=== PATIENT | female | born 1975 | race Caucasian/White ===

== ENCOUNTER 2025-04-30 10:52 | Outpatient (CLI) | payer OTHER, SELFPAY | END 2025-04-30 10:53 | disposition home or self-care (01) | PROVIDERS: PCP Family Medicine; Visit Provider Nurse Practitioner Family | DX: I10 Essential (primary) hypertension (principal); Z13.6 Encounter for screening for cardiovascular disorders | CPT/HCPCS: 80053; 80061; 81001 ==

== ENCOUNTER 2025-05-22 00:10 | Emergency (ER) | payer OTHER, SELFPAY ==
--- OUTSIDE RECORDS SUMMARY | 2025-04-29 14:45 | XMS_ITS | Encounter Summary ---
Author Organization [facility] Address [address] [place] [address]. [place] [address] Care Team Providers Care Record Clerk Name Role Phone No Ref-Primary, Physician Primary Care Provider Reason for Visit * Reason Comments jaw pain 50 yo F presents wit h the following complaint right jaw is swollen onset T-1 no tooth pain but jaw is tight . Encounter Details Date Type Department Care Team (Late st Contact Info) Description 04/29/2025 2:45 PM MANAGER QUALITY Office Visit [facility] [address] [phone] Joyce Esposito MD [address] [place], [place] [id number] Dental infection (Primary Dx); Elevated blood pressure reading without diagnosis of hypertension Social History Tobacco Use Types Packs/Day Years Used Date Smoking Tobacco: Never Assessed Comments Unknown Sex and Gender Information Value Date Recorded Sex Assigned at Not on file Legal Sex Female 9:28 PM MANAGER QUALITY Gender Identity Not on file Sexual Orientation Not on file documented as of this encounter Last Filed Vital Signs Vital Sign Reading Time Taken Comments Blood Pressure 179/114 04/29/2025 2:59 PM MANAGER QUALITY Pulse 100 04/29/2025 2:49 PM MANAGER QUALITY Temperature 36.7 C (98 F) 04/29/2025 2:49 PM MANAGER QUALITY Respiratory Rate 16 04/29/2025 2:49 PM MANAGER QUALITY Oxygen Saturation 99% 04/29/2025 2:49 PM MANAGER QUALITY Inhaled Oxygen Concentration - - Weight 59 kg (130 lb 1.6 oz) 04/29/2025 2:49 PM MANAGER QUALITY Height - - Body Mass Index - - documented in this encounter Patient Instructions * Attachments The following attachments cannot be sent through Care Everywhere. * Tooth: Abscessed (Gabonese) * Hypertension (Gabonese) documented in this encounter Progress Notes * Suzanne Deras CMA - 04/29/2025 2:45 PM CST Urgent Care Clinic Visit Chief Complaint Patient presents with jaw pain 50 yo F presents with the following complaint right jaw is swollen onset T-1 no tooth pain but jaw is tight . 04/29/2025 2:49 PM Additional Questions Roomed by Suzanne Accompanied by Self GER QUALITY * Joyce Esposito MD - 04/29/2025 2:45 PM CST ASSESSMENT/ PLAN: Dental infection - amoxicillin (AMOXIL) 875 MG tablet; Take 1 tablet (875 mg) by mouth 2 times daily for 10 days. Symptomatic treatment OTC analgesic (ibuprofen and or acetaminophen) as needed. Follow-up with primary dental clinic for definitive therapy. Elevated blood pressure reading without diagnosis of hypertension She is not aware of any previous elevated blood pressure. She has not been told she has hypertension, but has infrequent medical care. Blood pressure taken today was elevated. Discussed that some prescription medications for pain, poor sleep, and irritation from illness can temporarily raise BP. Frequent home/ store blood pressure checks are encouraged at different times of day. Patient shouldkeep a diary of blood pressure levels and share that information with the primary care provider to determine if antihypertensive medication initiation is necessary 'SUBJECTIVE: Chief Complaint Patient presents with jaw pain 50 yo F presents with the following complaint right jaw is swollen onset T-1 no tooth pain but jaw is tight . Sonja Dennison is a 50 year old female with a chief complaint of jaw/ dental pain . Onset of symptoms was 1 day(s) ago. She has attempted to arrange emergency dental care no- not yet Course of illness: sudden onset with swelling right jaw region of the 3rd molar on the right, no severe pain Current and Associated symptoms: little headache and malaise Treatment measures tried include None tried She has not been diagnosed with hypertension- never been told she had elevated BP PMH: No history of chronic health conditions ALLERGIES: Patient has no known allergies. Current Outpatient Medications Medication Sig Dispense Refill amoxicillin (AMOXIL) 875 MG tablet Take 1 tablet (875 mg) by mouth 2 times daily for 10 days. 20 tablet 0 No current facility-administered medications for this visit. ROS: CONSTITUTIONAL:NEGATIVE for fever, chills, INTEGUMENTARY/SKIN: NEGATIVE for worrisome rashes or lesions EYES: NEGATIVE for vision changes or irritation RESP:NEGATIVE for significant cough or SOB OBJECTIVE: BP (!) 179/114 Pulse 100 Temp 98 ??F (36.7 ??C) Resp 16 Wt 59 kg (130 lb 1.6 oz) LMP (Approximate) SpO2 99% Patient indicates that the following tooth is causing the swelling with some moderate pain symptoms: right lower 3rd molar Caries of the painful tooth with no purulent drainage noted: Pain with percussion over the affected tooth Swelling of the gingiva and cheek adjacent to the affected tooth: GENERAL APPEARANCE: alert, moderate distress, and cooperative HENT: ear canals and TM's normal. Nose normal. Pharynx not erythematous with no exudate noted. NECK: supple, non-tender to palpation, no adenopathy noted RESP: lungs clear to auscultation - no rales, rhonchi or wheezes CV: regular rates and rhythm, normal S1 S2, no murmur noted SKIN: no suspicious lesions or rashes GER QUALITY documented in this encounter Plan of Treatment Not on file documented as of this encounter Visit Diagnoses Diagnosis Dental infection- Primary Acute apical periodontitis of pulpal origin Elevated blood pressure reading without diagnosis of hypertension documented in this encounter Care Teams Record Clerk Relationship Specialty Start Date End Date No Ref-Primary, Physician PCP - General 04/29/25 documented as of this encounter
[2025-05-22 00:12] VITALS: BP 155/108; PULSE 90; RESP 16; TEMP 36.4; O2SAT 98; BMI 20.3
--- OUTSIDE RECORDS SUMMARY | 2025-05-22 00:14 | XMS_ITS | Clinical Summary ---
Author Organization [facility] Address [address] [place] [id number] Care Team Providers Care Stove Mounter Name Role Phone Pcp, No Primary Care Provider Unavailabl e Allergies No known active allergies Medications nicotine 21 mg/24 hr (NICODERM; HABITROL) 21 mg/24 hr patchIndications :Tobacco use Apply 1 Patch on dry, clean, hairless skin once daily. 30 Patch 7 Active albuterol HFA 90 mcg/actuation inhalerIndicatio ns:Dyspnea, unspecified type,Tobacco use Inhale 2 Puffs by mouth 4 times daily if needed. 1 Inhaler 7 Active Active Problems Problem Noted Date Diagnosed Date Chest pain on breathing 03/18/2017 Tobacco use 03/18/2017 Abnormal EKG 03/18/2017 Alcohol use disorder 03/18/2017 Elevated blood pressure reading 03/18/2017 Family History Medical History Relation Name Comments Malignant Hypertension Mother Coronary artery disease Paternal Grandfather Coronary artery disease Paternal Grandmother Relation Name Status Comments Mother Paternal Grandfather Paternal Grandmother Social History Tobacco Use Types Packs/Day Years Used Date Smoking Tobacco: Every Day Cigarettes Smokeless Tobacco: Never Tobacco Cessation:Ready to Q uit: Yes; Counseling Given: Yes Comments:TIP done 03/18/17 Alcohol Use Standard Drinks/Week Comments Yes 6 (1 standard drink = 0.6 oz pur e alcohol) Comments No Sex and Gender Information Value Date Recorded Sex Assigned at Not on file Legal Sex Female 5:51 AM TREATER HELPER Gender Identity Not on file Sexual Orientation Not on file Obstetrics History Last Filed Vital Signs Vital Sign Reading Time Taken Comments Blood Pressure 121/81 03/18/2017 11:34 AM CDT Pulse 70 03/18/2017 11:34 AM CDT Temperature 36.9 C (98.4 F) 03/18/2017 11:34 AM CDT Respiratory Rate 16 03/18/2017 11:34 AM CDT Oxygen Saturation 98% 03/18/2017 11:34 AM CDT Inhaled Oxygen Concentration - - Weight 58.6 kg (129 lb 3 oz) 03/18/2017 6:00 AM CDT Height 170.2 cm (5' 7) 03/18/2017 12:07 AM CDT Body Mass Index 20.23 03/18/2017 12:07 AM CDT Plan of Treatment Not on file Advance Directives * Full Code (Latest Code Status on File) Date Activated Date Inactivated Comments 03/18/2017 12:37 AM 03/18/2017 4:15 PM Care Teams Stove Mounter Relationship Specialty Start Date End Date Pcp, No . PCP - General 06/28/24
--- OUTSIDE RECORDS SUMMARY | 2025-05-22 00:14 | XMS_ITS | Clinical Summary ---
Author Organization [facility] Address [address] [place] [id number] Care Team Providers Care Link Assembler Name Role Phone No Ref-Primary, Physician Primary Care Provider Allergies No known active allergies Medications amoxicillin (AMOXIL) 875 MG tabletIndicatio ns:Dental infection Take 1 tablet (875 mg) by mouth 2 times daily for 10 days. 20 tablet 04/29/2025 Encounters Date Type Department Care Team Description 04/29/2025 2:45 PM RAT EXTERMINATOR Office Visit [facility] [address] [phone] Joyce Esposito MD Dental infection (Primary Dx); Elevated blood pressure reading without diagnosis of hypertension from Last 3 Months Social History Tobacco Use Types Packs/Day Years Used Date Smoking Tobacco: Never Assessed Comments Unknown Sex and Gender Information Value Date Recorded Sex Assigned at Not on file Legal Sex Female 9:28 PM RAT EXTERMINATOR Gender Identity Not on file Sexual Orientation Not on file Last Filed Vital Signs Vital Sign Reading Time Taken Comments Blood Pressure 179/114 04/29/2025 2:59 PM RAT EXTERMINATOR Pulse 100 04/29/2025 2:49 PM RAT EXTERMINATOR Temperature 36.7 C (98 F) 04/29/2025 2:49 PM RAT EXTERMINATOR Respiratory Rate 16 04/29/2025 2:49 PM RAT EXTERMINATOR Oxygen Saturation 99% 04/29/2025 2:49 PM RAT EXTERMINATOR Inhaled Oxygen Concentration - - Weight 59 kg (130 lb 1.6 oz) 04/29/2025 2:49 PM RAT EXTERMINATOR Height - - Body Mass Index - - Plan of Treatment Health Maintenance Due Date Last Done Comments ADVANCE CARE PLANNING 1976 ANNUAL REVIEW OF HM ORDERS 1976 CT COLONOGRAPHY 1976 DIABETES SCREENING 1976 FIT 1976 FLEX SIG 1976 MAMMO SCREENING 1976 sDNA (Cologuard) 1976 YEARLY PREVENTIVE VISIT 02/01/1979 COLONOSCOPY 02/01/1986 COLORECTAL CANCER SCREENING 02/01/1986 HIV SCREENING 02/01/1991 HEPATITIS C SCREENING 02/01/1994 HEPATITIS B VACCINE (1 of 3 - 19+ 3-dose series) 02/01/1995 PAP 02/01/1997 LIPID 2016 PHQ-2 (once per calendar year) 2024 COVID-19 VACCINE ( - season) 2025 02/10/2023, 07/01/2021, 11/06/2020, Additional history exists INFLUENZA VACCINE (#1) 2025 , 05/02/2013, 03/29/2012, Additional history exists ZOSTER VACCINE (1 of 2) 02/01/2026 DTAP/TDAP/TD VACCINE (2 - Td or Tdap) 11/03/2027 11/02/2017 HPV VACCINE (No Doses Required) Completed MENINGITIS VACCINE Aged Out No longer eligible based on patient's age to complete this topic PNEUMOCOCCAL VACCINE: PEDIATRICS (0 to 5 YEARS) AND AT-RISK PATIENTS (6 to 49 YEARS) Aged Out No longer eligible based on patient's age to complete this topic Insurance MEDICA CHOICE MED[employer] CHOICE Care Teams Link Assembler Relationship Specialty Start Date End Date No Ref-Primary, Physician PCP - General 04/29/25
--- NOTE | 2025-05-22 00:30 | ED.GENADULT ---
HPI - General Adult General Time Seen by Provider: 00:30 Date Seen: 05/22/25 Chief complaint: Allergic Reaction Stated complaint: facial swelling Time Seen by Provider: 05/22/25 00:27 Source: patient Mode of arrival: ambulatory Limitations: no limitations History of Present Illness HPI narrative: 50-year-old female who presents today with concern for allergic reaction. She reports swelling of her lips, face, hands and feet when she woke up tonight. Symptoms resolved now. Patient's spouse report visible swelling of the lips and face as well as mild swelling of eyelids, swelling and redness of the forearms with some itching. No breathing or swallowing difficulty. Patient recently started Chantix and has been doing well with smoking cessation, also started losartan at the same time. Related Data Home Medications ?Medication ?Instructions ?Recorded ?Confirmed amoxicillin 875 mg tablet 875 mg PO BID 04/30/25 05/22/25 Previous Rx's ?Medication ?Instructions ?Recorded losartan 50 mg tablet (Cozaar) 50 mg PO QDAY #30 tabs 04/30/25 varenicline tartrate 0.5 mg (11)-1 See Rx Instructions PO PER PKG DIR 04/30/25 mg (42) tablets in a dose pack #53 ea (Chantix Starting Month Box) Allergies Allergy/AdvReac Type Severity Reaction Status Date / Time No Known Drug Allergies Allergy Verified 05/22/25 00:19 PFSH PFSH Surgical History (Updated 10/04/24 @ 13:00 by Nelsy Still) History of surgical removal of ganglion cyst (08/06/09) ?Z98.890 - Other specified postprocedural states (ICD-10) History of tubal ligation (12/14/07) ?Z98.51 - Tubal ligation status (ICD-10) History of vaginal delivery Family History (Updated 10/04/24 @ 13:09 by Nelsy Still) Mother Diabetes High blood pressure Maternal Grandmother Diabetes Paternal Grandfather Heart disease Hx of CABG Aunt Lung cancer Paternal Grandmother Heart disease Exam Narrative: Exam Narrative: General: Well-developed and well-nourished, no acute distress Head: Atraumatic and normocephalic Eyes: Pupils are equal reactive, extraocular motions intact, conjunctiva clear ENT: External nose and ears are normal, posterior pharynx without erythema or exudate Neck: No midline cervical tenderness, full spontaneous range of motion the neck, trachea midline, no adenopathy Heart: Regular rate and rhythm no murmurs or thrills Lungs: Clear to auscultation bilaterally without wheezes or crackles Abdomen: Soft, nontender, nondistended with active bowel sounds Musculoskeletal: No tenderness, deformity, or edema Neurologic: Awake, alert, and oriented x3, no gross focal neurologic deficits, cranial nerves intact as tested Psych: Mood and affect are appropriate Skin: No rashes Const: Vital Signs, click to edit/add: Vital Signs - 24 hr 05/22/25 00:12 Temperature 97.5 F L Pulse Rate [Pulse Oximeter] 90 Respiratory Rate 16 Blood Pressure [Ri t Upper Arm] 155/108 H Pulse Oximetry 98 Oxygen Delivery Me thod Room Air Course Course ED Course: Additional records reviewed: Most recent primary care visit from April 30 which was for elevated blood pressure, patient was started on losartan and Chantix Additional history from: Spouse Care impacted by: Hypertension, history of smoking Testing considered but not performed: See ED course Patient seen examined for facial swelling, swelling johana tching of the arms this evening. Recently started on Chantix and losartan, both of which can cause angioedema. Patient's symptoms are resolved now. Patient will stop Chantix losartan, she is very concerned about her blood pressure, amlodipine will be started. Vital Signs Vital signs: Initial Vital Signs Temperature 97.5 F L 05/22/25 00:12 Temperature Source Temporal Artery Scan 05/22/25 00:12 Pulse Rate 90 05/22/25 00:12 Respiratory Rate 16 05/22/25 00:12 Blood Pressure 155/108 H 05/22/25 00:12 Blood Pressure Mean 123 H 05/22/25 00:12 Pulse Oximetry 98 05/22/25 00:12 Oxygen Delivery Method Room Air 05/22/25 00:12 Vital Signs Temperature 97.5 F L 05/22/25 00:12 Pulse Rate 90 05/22/25 00:12 Respiratory Rate 16 05/22/25 00:12 Blood Pressure 155/108 H 05/22/25 00:12 Pulse Oximetry 98 05/22/25 00:12 Oxygen Delivery Method Room Air 05/22/25 00:12 Temperature 97.5 F L 05/22/25 00:12 Pulse Rate 90 05/22/25 00:12 Respiratory Rate 16 05/22/25 00:12 Blood Pressure 155/108 H 05/22/25 00:12 Pulse Oximetry 98 05/22/25 00:12 Oxygen Delivery Method Room Air 05/22/25 00:12 Discharge Plan Discharge Prescriptions: No Action amoxicillin 875 mg tablet 875 mg PO BID losartan [Cozaar] 50 mg tablet 50 mg PO QDAY Qty: 30 1RF Rx Instructions: Cozaar 25 mg daily x 2 weeks and then 50 mg daily thereafter varenicline tartrate [Chantix Starting Month Box] 0.5 mg (11)- 1 mg (42) tablets,dose pack See Rx Instructions PO PER PKG DIR Qty: 53 0RF Rx Instructions: PO PER PKG DIR Follow Up/Referrals: Zachariah Abreu MD [Primary Care Provider, Family Practice]
== END 2025-05-22 01:12 | disposition home or self-care (01) ==
PROVIDERS: Emergency Provider Family Medicine; PCP Family Medicine
DX: L29.9 Pruritus, unspecified (principal); T44.995A Adverse effect of other drug primarily affecting the autonomic nervous system, initial encounter; T46.5X5A Adverse effect of other antihypertensive drugs, initial encounter
CPT/HCPCS: 99283; 99284; A9270; J7512